=== PATIENT | male | born 1945 | race Caucasian/White ===

== ENCOUNTER 2018-02-11 15:01 | Inpatient (IN) ==
[2018-02-11] MEDS ORDERED: 0.9 % Sodium Chloride 500 ML IVC ONE (15:24)
--- NOTE | 2018-02-11 15:42 | Emergency Department Note ---
Disposition Clinical Impression: Acute kidney injury UTI (urinary tract infection) Qualifiers: Urinary tract infection type: site unspecified Hematuria presence: without hematuria Qualified Code(s): N39.0 - Urinary tract infection, site not specified Disposition: Admitted As Inpatient Condition: Fair Time of Disposition: 17:00 General Adult HPI - General Chief complaint: ED General Medical Stated complaint: DECREASED RENAL FUNCTION Time Seen by Provider: 02/11/18 15:10 Source: patient, other (ECF report) Mode of arrival: EMS Limitations: physical limitation Nursing Notes Reviewed: Yes Vital Signs Reviewed: Yes - History of Present Illness HPI Narrative: Patient presents to the ED via EMS for local ECF with report of decreased renal function based on outpatient lab work. Patient is a resident at [facility] and per nursing staff call ahead of time he was being sent in by Dr. Jimenez due to a sudden increase in his BUN and creatinine as well as some increased confusion. Patient has a history of CHF and is on diuretics as well as a recent fluid restriction per report. Patient's history is also notable for recent admission at [facility] for a spontaneous pneumothorax approximately 2 weeks ago. He also has cirrhosis, hypertension, diabetes, COPD, ME and is currently being treated for a UTI. skilled nursing report shows that he is on Bactrim. The patient himself denies any complaints when asked but on specific review of systems he does admit to some chronic mild shortness of breath and leg swelling that is no change. He does report a single episode of diarrhea today. He denies any chest pain, lightheadedness or dizziness. No abdominal pain, nausea or vomiting. No cough or congestion. Pain Scale: 0 - Related Data Home Medications Medication Instructions Recorded Confirmed Atorvastatin [Lipitor] 40 mg PO HS 07/05/15 02/11/18 Clopidogrel [Plavix] 75 mg PO DAILY 07/05/15 02/11/18 Tamsulosin [Flomax] 0.4 mg PO DAILY 07/05/15 02/11/18 Apixaban [Eliquis] 5 mg PO BID 01/07/18 02/11/18 Famotidine [Heartburn Prevention] 20 mg PO BID 01/07/18 02/11/18 Furosemide [Lasix] 80 mg PO DAILY 01/07/18 02/11/18 Cholecalciferol (Vitamin D3) 2,000 unit PO 02/11/18 [Vitamin D] Docusate [Colace] 100 mg PO BID 02/11/18 02/11/18 Insulin Glargine,Hum.rec.anlog 40 unit SQ HS 02/11/18 02/11/18 [Lantus Solostar] Ipratropium/Albuterol Neb [Duoneb] 3 ml IH Q4HR 02/11/18 02/11/18 Lactobacillus Acidophilus 1 each PO BID 02/11/18 02/11/18 [Acidophilus Lactobacillus] Metoprolol XL (24 HR) Succ [Toprol 50 mg PO DAILY 02/11/18 02/11/18 XL] Polyethylene Glycol 3350 [MiraLAX 1 scoop PO DAILY 02/11/18 02/11/18 Powder Bulk 17.9 Oz] Sulfamethoxazole/Trimeth DS 1 each PO BID 02/11/18 02/11/18 [Bactrim DS] Tramadol HCl [Ultram] 50 mg PO QID PRN 02/11/18 02/11/18 Allergies Allergy/AdvReac Type Severity Reaction Status Date / Time No Known Allergies Allergy Verified 01/29/18 04:33 Constitutional: Denies: fever, chills, weakness, weight change Eyes: Denies: eye pain, eye discharge, vision change ENT ED: Denies: ear pain, throat pain, dental pain, hearing loss, epistaxis, congestion, dysphagia Cardiovascular: Reports: as per HPI, edema. Denies: chest pain, palpitations, dyspnea on exertion, syncope Respiratory: Reports: as per HPI, cough, dyspnea. Denies: wheezes, hemoptysis, stridor Gastrointestinal: Denies: abdominal pain, nausea, vomiting, diarrhea, constipation, hematemesis, melena, hematochezia Genitourinary: Denies: urgency, dysuria, frequency, hematuria Musculoskeletal: Denies: back pain, neck pain, arthralgia, myalgia Integumentary: Denies: rash, abrasion, lesions Neurological: Denies: headache, weakness, numbness, paresthesias, confusion, abnormal gait, vertigo Psychiatric: Denies: anxiety, depression, suicidal thoughts, homicidal thoughts , auditory hallucinations, visual hallucinations Endocrine: Denies: fatigue Hematological/Lymphatic: Denies: easy bleeding, easy bruising Allergic/Immunologic: Denies: facial swelling, urticaria Past Medical History - Past Medical History Medical history: Reports: cirrhosis, CHF, COPD, coronary artery disease, CVA, diabetes, GERD, hyperlipidemia, hypertension, liver disease, myocardial infarction, other Psychiatric history: Reports: no psych history - Social History Smoking Status: Former smoker Smokeless Tobacco Status: No Alcohol use: Reports: none Drug use: Reports: none Physical Exam - General Limitations: physical limitation General appearance: alert, in no apparent distress - Head Head exam: atraumatic, normocephalic, normal inspection - Eye Eye exam: Present: normal appearance, PERRL, EOMI - ENT ENT exam: normal exam, normal oropharynx, mucous membranes dry - Neck Neck exam: Present: normal inspection, full ROM, trachea midline - Chest Chest inspection: Present: normal inspection, symmetric chest wall rise. Absent : tenderness - Respiratory Respiratory exam: Present: normal lung sounds bilaterally. Absent: respiratory distress - Cardiovascular Cardiovascular exam: Present: regular rate, normal rhythm, normal heart sounds - Abdominal Exam Abdominal exam: Present: soft, Non-Tender. Absent: tenderness, distention, guarding, rebound, rigidity - Extremities Exam Extremities exam: Present: normal inspection, full ROM, pedal edema (2+ lower calf/ankles). Absent: tenderness - Neurological Exam Neurological exam: Present: alert, oriented X3 - Psychiatric Psychiatric exam: Present: normal affect, normal mood - Skin Skin exam: Present: warm, dry, intact, normal color Course Course Narrative: Patient presents to the ED from a local [facility] for further evaluation of a sudden decline in renal function on outpatient lab work per report. Review of records shows that his BUN and creatinine went from 29 and 1.8 on 02/09 to 43 and 2.8 to today as well as a slight increase in a chronically elevated white blood cell count. skilled nursing records shows that patient is on Lasix 60 mg daily as well as a recent fluid restriction of 2000 mL per day that was started on the . Records show he had previously been on Aldactone as well. On arrival patient is afebrile, nontoxic in appearance and hemodynamically stable other than he does have a mildly low blood pressure which appears to be chronic for him. Oxygen saturations are in the low 90s on 4 L which is his usual oxygen requirement per EMS. Physical exam is notable only for lower extremity edema with clear lung sounds and no respiratory distress. Will give gentle IV fluids while laboratory studies and chest x-ray are obtained for further evaluation. - Reevaluation(s) Reevaluation #1: Chest x-ray shows mild cardiomegaly without overt failure. Laboratory studies show increasing leukocytosis as well as increasing BUN/creatinine and persistent signs of UTI. BNP is only minimally elevated. Given these worsening results patient will require admission for continued judicious hydration for what appears to be over diuresis. I called and spoke to Dr. Jimenez who has agreed to admit the patient. Patient and family updated on plan. Vital Signs Temperature 97.7 F 02/11/18 15:04 Pulse Rate 94 02/11/18 15:04 Respiratory Rate 18 02/11/18 15:04 Blood Pressure 94/47 02/11/18 15:04 O2 Sat by Pulse Oximetry 94 02/11/18 15:04 Temperature 98.3 F 02/12/18 04:10 Pulse Rate 90 02/12/18 04:10 Respiratory Rate 20 02/12/18 04:10 Blood Pressure 80/52 02/12/18 04:10 O2 Sat by Pulse Oximetry 93 02/12/18 04:10 Oxygen Delivery Oxygen Delivery Nasal Cannula Medical Decision Making - Medical Records Medical records reviewed: Yes I reviewed the patient's medical records. - Lab Data Lab results reviewed: Yes I reviewed the patient's lab results. Result diagrams: 02/11/18 15:57 02/11/18 15:57 Lab Results 02/11/18 02/11/18 02/11/18 Range/Units 15:57 15:57 15:57 WBC 18.5 H (4.3-11.1) K/mcL RBC 3.13 L (4.19-5.50) M/mcL Hgb 9.3 L (12.9-16.9) g/dL Hct 29.3 L (37.5-50.1) % MCV 93.6 (83.0-100.0) fL MCH 29.7 (28.0-33.3) pg MCHC 31.7 (31.6-35.5) g/dL RDW 15.9 H (11.5-14.5) % Plt Count 247 (140-400) K/mcL MPV 9.4 (9.4-12.4) fL Immature Gran % 0.8 (0-4) % Seg Neutrophils % 88.8 % Lymphocytes % 5.6 % Monocytes % 4.1 % Eosinophils % 0.5 % Basophils % 0.2 % Neutrophils # 16.4 H (1.6-8.9) K/mcL Lymphocytes # 1.0 (0.6-4.6) K/mcL Monocytes # 0.8 (0.0-1.3) K/mcL Eosinophils # 0.1 (0.0-0.6) K/mcL Basophils # 0.0 (0.0-0.2) K/mcL Sodium 132 L (136-145) mEq/L Potassium 5.2 H (3.5-5.1) mEq/L Chloride 100 (98-107) mEq/L Carbon Dioxide 24 (23-29) mEq/L BUN 47 H (8-23) mg/dL Creatinine 3.01 H (0.70-1.30) mg/dL Est GFR ( Amer) 25 L (> 60) Est GFR (Non-Af Amer) 20 L (> 60) BUN/Creatinine Ratio 16 (6-26) Glucose 127 H (70-105) mg/dL Calculated Osmolality 288 (280-300) Calcium 8.7 (8.6-10.3) mg/dL Total Bilirubin 0.5 (0.3-1.0) mg/dL AST 28 (13-39) Units/L ALT 20 (7-52) Units/L Alkaline Phosphatase 80 (34-104) Units/L B-Natriuretic Peptide 168 H (Less than 100) pg/mL Serum Total Protein 5.4 L (6.4-8.9) g/dL Albumin 2.2 L (3.5-5.7) g/dL Globulin 3.2 (2.4-3.5) g/dL Albumin/Globulin Ratio 0.7 L (1.1-2.2) - Radiology Data Radiology results reviewed: Yes I reviewed the patient's radiology results. ITS Impressions Chest X-Ray 02/11/18 15:24 IMPRESSION: Right basilar atelectasis. Mild cardiomegaly without overt failure. D/ / Keyur Lezama MD / Keyur Lezama MD Interpreting Provider: Keyur Lezama MD
[2018-02-11 16:07] LABS: Basophils % 0.2 %; Eosinophils # 0.1 K/mcL (0.0-0.6); Eosinophils % 0.5 %; Hematocrit 29.3 % (37.5-50.1); Hemoglobin 9.3 g/dL (12.9-16.9); Immature Granulocytes % 0.8 % (0-4); Lymphocytes % 5.6 %; Mean Corpuscular HGB Conc 31.7 g/dL (31.6-35.5); Mean Corpuscular Hemoglobin 29.7 pg (28.0-33.3); Mean Corpuscular Volume 93.6 fL (83.0-100.0); Mean Platelet Volume 9.4 fL (9.4-12.4); Monocytes # 0.8 K/mcL (0.0-1.3); Monocytes % 4.1 %; Neutrophils # 16.4 K/mcL (1.6-8.9); Platelet Count 247 K/mcL (140-400); Red Blood Count 3.13 M/mcL (4.19-5.50); Red Cell Distribution Width 15.9 % (11.5-14.5); Segmented Neutrophils % 88.8 %
[2018-02-11 16:25] LABS: Albumin 2.2 g/dL (3.5-5.7); Albumin/Globulin Ratio 0.7 (1.1-2.2); Bilirubin,Total 0.5 mg/dL (0.3-1.0); Calcium 8.7 mg/dL (8.6-10.3); Globulin 3.2 g/dL (2.4-3.5); Potassium 5.2 mEq/L (3.5-5.1); Total Protein 5.4 g/dL (6.4-8.9)
[2018-02-11] MEDS ORDERED: Naloxone 0.4 MG/ML INJ IVP PRN ×2 (17:35→18:32)
[2018-02-11] MEDS ORDERED: 0.9 % Sodium Chloride 1,000 ML IVC SCH ×2 (17:45→18:32)
[2018-02-11] MEDS ORDERED: *HR* Dextrose 50 % in Water (Syg) 50 ML SYRINGE IVP PRN ×2 (17:48→18:32)
[2018-02-11] MEDS ORDERED: D5% in Water 1,000 ML IVC PRN ×2 (17:48→18:32)
[2018-02-11] MEDS ORDERED: Dextrose Gel 15 GM/37.5 ML TUBE PO PRN ×4 (17:48→18:32)
[2018-02-11] MEDS ORDERED: traMADol 50 MG TABLET PO PRN (18:32)
[2018-02-11 19:42] LABS: Bilirubin,Urine Negative (Negative); Blood,Urine Small (Negative); Clarity,Urine Slightly Cloudy (Clear); Color,Urine Dark Yellow (Yellow); Glucose,Urine (UA) Normal (Normal); Ketones,Urine Negative (Negative); Leukocyte Esterase,Urine Moderate (Negative); Nitrite,Urine Negative (Negative); Protein,Urine Trace mg/dL (Neg-Trace); Specific Gravity,Urine 1.025 (1.010-1.025); Urobilinogen,Urine Normal (Normal)
[2018-02-11 19:47] LABS: WBC,Urine 30-50 per hpf (0-3)
[2018-02-11 19:48] LABS: Yeast,Urine Moderate per hpf (None Seen)
[2018-02-11] MEDS: Ipratropium/Albuterol Neb 3 ML IH SCH (20:10)
[2018-02-11] MEDS ORDERED: Insulin DETEMIR 100 UNIT/ML per UNIT SQ ONE ×2 (21:00→22:09)
[2018-02-11] MEDS ORDERED: Insulin LISPRO 300 UNITS/3 ML VIAL SQ SCH (21:00)
[2018-02-11] MEDS: Insulin LISPRO 300 UNITS/3 ML VIAL SQ SCH (21:51)
[2018-02-11] MEDS: Lactobacillus 1 EACH CAP.SPRINK PO SCH (22:20)
[2018-02-11] MEDS: Famotidine 20 MG TABLET PO SCH (22:20)
[2018-02-11] MEDS: Sulfamethoxazole/Trimeth DS 1 EACH TABLET PO SCH (22:20)
[2018-02-11] MEDS: Apixaban 5 MG TABLET PO SCH (22:21)
[2018-02-12] MEDS: Ipratropium/Albuterol Neb 3 ML IH SCH ×6 (04:50→20:46)
[2018-02-12] MEDS ORDERED: Insulin LISPRO 300 UNITS/3 ML VIAL SQ SCH (07:30)
[2018-02-12 08:14] LABS: Basophils % 0.3 %; Eosinophils # 0.2 K/mcL (0.0-0.6); Eosinophils % 1.8 %; Hematocrit 28.4 % (37.5-50.1); Immature Granulocytes % 0.9 % (0-4); Lymphocytes # 1.2 K/mcL (0.6-4.6); Lymphocytes % 10.2 %; Mean Corpuscular HGB Conc 31.7 g/dL (31.6-35.5); Mean Corpuscular Hemoglobin 29.9 pg (28.0-33.3); Mean Corpuscular Volume 94.4 fL (83.0-100.0); Mean Platelet Volume 9.1 fL (9.4-12.4); Monocytes # 0.7 K/mcL (0.0-1.3); Monocytes % 5.5 %; Platelet Count 247 K/mcL (140-400); Red Blood Count 3.01 M/mcL (4.19-5.50); Red Cell Distribution Width 15.9 % (11.5-14.5); Segmented Neutrophils % 81.3 %
[2018-02-12 08:25] LABS: Neutrophils # 9.8 K/mcL (1.6-8.9)
[2018-02-12 08:33] LABS: Calcium 8.8 mg/dL (8.6-10.3); Potassium 5.3 mEq/L (3.5-5.1)
[2018-02-12] MEDS: Insulin LISPRO 300 UNITS/3 ML VIAL SQ SCH ×4 (09:28→22:21)
[2018-02-12] MEDS: Sulfamethoxazole/Trimeth DS 1 EACH TABLET PO SCH (10:23)
[2018-02-12] MEDS: Lactobacillus 1 EACH CAP.SPRINK PO SCH ×2 (10:23→22:19)
[2018-02-12] MEDS: Famotidine 20 MG TABLET PO SCH (10:23)
[2018-02-12] MEDS: Apixaban 5 MG TABLET PO SCH ×2 (10:23→22:20)
--- NOTE | 2018-02-12 10:27 | Internal Med History&Physical ---
Date of Encounter: 02/12/18 Time of Encounter: 09:50 Assessment and Plan (1) Acute kidney injury Current visit: Yes Status: Acute He will be given gentle IV hydration. Lasix will be held and renal indices will be monitored. (2) UTI (urinary tract infection) Current visit: Yes Status: Acute He will be given Rocephin with lactobacillus empirically. Qualifiers: Urinary tract infection type: site unspecified Hematuria presence: without hematuria Qualified Code(s): N39.0 - Urinary tract infection, site not specified (3) COPD (chronic obstructive pulmonary disease) Current visit: Yes Status: Chronic Continue oxygen and nebulizer treatments. Qualifiers: COPD type: unspecified COPD Qualified Code(s): J44.9 - Chronic obstructive pulmonary disease, unspecified (4) Anemia Current visit: Yes Status: Chronic Present on most labs since June 2015. Anemia testing 02/09/2018 showed iron 26, transferrin saturation 13%, transferrin 144, ferritin 397, B12 791, and folate 4.3. Will order ferrous sulfate with vitamin C trial. Qualifiers: Anemia type: unspecified type Qualified Code(s): D64.9 - Anemia, unspecified (5) Pancreatic cyst Current visit: Yes Status: Acute Uncertain diagnosis. CT of abdomen/pelvis will be ordered. (6) Cirrhosis of liver Current visit: Yes Status: Chronic He is unaware of any workup done for etiology. Will order hepatitis B and C panel, SAHRA, and alpha-1 antitrypsin. Qualifiers: Ascites presence: with ascites Qualified Code(s): K74.60 - Unspecified cirrhosis of liver; R18.8 - Other ascites (7) Atrial fibrillation Current visit: No Status: Chronic Continue Eliquis Qualifiers: Atrial fibrillation type: paroxysmal Qualified Code(s): I48.0 - Paroxysmal atrial fibrillation (8) CHF (congestive heart failure) Current visit: No Status: Chronic Order echocardiogram. Qualifiers: Heart failure type: unspecified Heart failure chronicity: chronic Qualified Code(s): I50.9 - Heart failure, unspecified (9) Diabetes mellitus Current visit: No Status: Chronic Hemoglobin A1c was 5.8% on 01/23/2018. He has had borderline hypoglycemia. Lantus/Levemir dose will be reduced. Accu-Cheks with SSI continued. Qualifiers: Diabetes mellitus type: type 2 Diabetes mellitus care home insulin use: with care home use Diabetes mellitus complication status: with unspecified complications Qualified Code(s): E11.8 - Type 2 diabetes mellitus with unspecified complications; Z79.4 - intermediate frame tender (current) use of insulin Internal Medicine - H&P: HPI Chief complaint: Acute renal failure, leukocytosis Admitted From: Emergency Dept Plans for Post Hospital Care: Transfer Custodial Facility History of present illness: Mr. Limon is a 72 year old male who was sent to emergency room from [facility] after acute renal failure was documented. He was evaluated in emergency room and found to have leukocytosis with left shift in addition to acute renal failure. He was admitted to [facility] floor for ongoing care needs. Past Med Surg Social Fam HX - Past Medical History Medical history: cirrhosis, CHF, COPD, coronary artery disease, CVA, diabetes, GERD, hyperlipidemia, hypertension, liver disease, myocardial infarction, other Additional medical history: ANEMIA. Psychiatric history: no psych history - Past Surgical History Additional surgical history: CARDIAC STENTS X4 - Social History Smoking Status: Former smoker Smokeless Tobacco Status: No Alcohol use: none Drug use: none - Family History Mother Living Status: Unknown Internal Medicine - H&P: Meds Atorvastatin [Lipitor] 40 mg PO HS 07/05/15 [History] Clopidogrel [Plavix] 75 mg PO DAILY 07/05/15 [History] Tamsulosin [Flomax] 0.4 mg PO DAILY 07/05/15 [History] Apixaban [Eliquis] 5 mg PO BID 01/07/18 [History] Famotidine [Heartburn Prevention] 20 mg PO BID 01/07/18 [History] Furosemide [Lasix] 80 mg PO DAILY 01/07/18 [History] Cholecalciferol (Vitamin D3) [Vitamin D] 2,000 unit PO 02/11/18 [History] Docusate [Colace] 100 mg PO BID 02/11/18 [History] Insulin Glargine,Hum.rec.anlog [Lantus Solostar] 40 unit SQ HS 02/11/18 [History ] Ipratropium/Albuterol Neb [Duoneb] 3 ml IH Q4HR 02/11/18 [History] Lactobacillus Acidophilus [Acidophilus Lactobacillus] 1 each PO BID 02/11/18 [ History] Metoprolol XL (24 HR) Succ [Toprol XL] 50 mg PO DAILY 02/11/18 [History] Polyethylene Glycol 3350 [MiraLAX Powder Bulk 17.9 Oz] 1 scoop PO DAILY [History] Sulfamethoxazole/Trimeth DS [Bactrim DS] 1 each PO BID 02/11/18 [History] Tramadol HCl [Ultram] 50 mg PO QID PRN 02/11/18 [History] 3 Allergy/AdvReac Type Severity Reaction Status Date / Time No Known Allergies Allergy Verified 01/29/18 04:33 All Systems PM: A 10-system review of systems was performed and is negative for pertinent findings except as documented above in the HPI. Review of systems: Gen.: His weight has fluctuated recently based on fluid retention Cardiovascular: He has a history of hypertension, CHF (type unknown), and ASHD status post 4 stents placed. He does not recall when his last heart catheter occurred. He denies DVT but reports pulmonary embolus September 2017 and is now on Eliquis. He has history of atrial fibrillation. Respiratory: He smoked from age 16 until a few months ago. He has COPD and wears oxygen 06/01. He had a spontaneous left pneumothorax approximately 2 weeks ago and was hospitalized at [facility] briefly following transport to [facility] where chest tube was placed prior to transfer to [facility]. He denies being tested for sleep apnea. GI: He has history of cirrhosis of uncertain etiology. He denies hepatitis or significant alcohol use. He denies disorders of his gallbladder. He states he was diagnosed with a pancreatic cyst (?) at [facility] hospitalization January 2018. This was not confirmed upon reviewing the discharge summary from [facility]. : He denies hematuria dysuria or kidney stones. 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 He underwent rehabilitation but has residual deficit of his left arm, overall weakness, and memory loss. Endocrine: He was diagnosed with DM 2 approximately 2012. He denies thyroid disease or hyperlipidemia Hematology/oncology: He denies blood disorders or internal malignancies. He has anemia. Psychiatric: He denies anxiety depression or other mental health issues. Mus[place] skeletal: He denies arthritis gout or other bone joint or muscle disorders. - Constitutional Vitals: Temp Pulse Resp BP Pulse Ox 97.7 F 86 18 84/52 89 02/12/18 06:50 02/12/18 06:50 02/12/18 07:45 08/30/18 06:50 02/12/18 07:45 Exam: Gen.: He is a well-developed well-nourished male who appears in no severe distress at present time. HEENT: Head is atraumatic and normocephalic. Eyes: EOMI. There is no scleral icterus. Mouth: Mucosa is moist. Neck: Supple and nontender. There is no thyromegaly or adenopathy noted. Heart: Regular without murmurs gallops or ectopics Lungs: No wheezes or crackles are heard. Abdomen: Soft and nontender. No masses or guarding are noted. Extremities: He has 2-3+ edema of the dorsum of feet and lower legs bilaterally. He has chronic venous stasis pigmentation changes of his lower legs and feet. Dorsalis pedis and posterior tibial pulses are not palpable. He has wasting of the interosseous muscles of his hand. He has spastic tone in his left arm from previous CVA. Neurologic: Mental status: He is talkative and able to answer most questions appropriately. Cranial nerves: Smile is symmetric. Forehead wrinkles bilaterally. Tongue protrudes midline. EOMI. Motor: He has difficulty raising his left arm off the bed spontaneously. The right arm can pronate normally without drift. Cerebellar: Finger to nose is intact bilaterally. Skin: Warm and dry Internal Med - H&P Results - Labs CBC & Chem 7: 02/12/18 07:56 02/12/18 07:56 Labs: Short CBC 02/12/18 Range/Units 07:56 WBC 12.0 H (4.3-11.1) K/mcL Hgb 9.0 L (12.9-16.9) g/dL Hct 28.4 L (37.5-50.1) % Plt Count 247 (140-400) K/mcL Neutrophils # 9.8 H (1.6-8.9) K/mcL BMP 02/12/18 07:56 Sodium 131 L Potassium 5.3 H Chloride 99 Carbon Dioxide 26 BUN 50 H Creatinine 3.16 H Glucose 73 Calcium 8.8 Urine 02/11/18 Range/Units 19:30 Urine Color Dark Yellow (Yellow) Urine Clarity Slightly Cloudy A (Clear) Urine pH 5.0 (5.0-8.0) pH Units Ur Specific [place] 1.025 (1.010-1.025) Urine Protein Trace (Neg-Trace) mg/dL Urine Glucose (UA) Normal (Normal) mg/dL - VTE Reasons for not Prescribing Prophylaxis: Treatment not Indicated - Low risk for VTE
[2018-02-12] MEDS: cefTRIAXone 1,000 MG in Water for inj. (sterile) 20 ML 10 ML IVP SCH (12:40)
[2018-02-12] MEDS: Mag Hydrox/Al Hydrox/Simeth 30 ML UDC PO PRN (17:53)
[2018-02-12] MEDS ORDERED: Insulin DETEMIR 100 UNIT/ML X5UNITS SQ SCH (21:00)
[2018-02-12] MEDS ORDERED: Lactobacillus 1 EACH CAP.SPRINK PO SCH (21:00)
[2018-02-12] MEDS: Insulin DETEMIR 100 UNIT/ML X5UNITS SQ SCH (22:20)
[2018-02-13] MEDS: Ipratropium/Albuterol Neb 3 ML IH SCH ×6 (00:43→20:39)
[2018-02-13] MEDS: ALPRAZolam 0.5 MG TABLET PO PRN (04:00)
[2018-02-13] MEDS: Mag Hydrox/Al Hydrox/Simeth 30 ML UDC PO PRN ×2 (04:27→21:57)
[2018-02-13] MEDS: Ascorbic Acid 500 MG TABLET PO SCH (06:17)
[2018-02-13 07:24] LABS: Basophils % 0.2 %; Eosinophils # 0.1 K/mcL (0.0-0.6); Eosinophils % 1.3 %; Hematocrit 30.2 % (37.5-50.1); Hemoglobin 9.5 g/dL (12.9-16.9); Immature Granulocytes % 0.8 % (0-4); Lymphocytes # 0.9 K/mcL (0.6-4.6); Lymphocytes % 9.3 %; Mean Corpuscular HGB Conc 31.5 g/dL (31.6-35.5); Mean Corpuscular Hemoglobin 29.8 pg (28.0-33.3); Mean Corpuscular Volume 94.7 fL (83.0-100.0); Mean Platelet Volume 9.3 fL (9.4-12.4); Monocytes # 0.6 K/mcL (0.0-1.3); Monocytes % 6.8 %; Neutrophils # 7.6 K/mcL (1.6-8.9); Platelet Count 229 K/mcL (140-400); Red Blood Count 3.19 M/mcL (4.19-5.50); Red Cell Distribution Width 15.8 % (11.5-14.5); Segmented Neutrophils % 81.6 %
[2018-02-13 07:51] LABS: Calcium 8.7 mg/dL (8.6-10.3); Magnesium 2.8 mg/dL (1.6-2.6); Potassium 5.7 mEq/L (3.5-5.1)
[2018-02-13] MEDS: Insulin LISPRO 300 UNITS/3 ML VIAL SQ SCH ×4 (08:06→21:49)
[2018-02-13] MEDS: Apixaban 5 MG TABLET PO SCH (10:18)
[2018-02-13] MEDS: Lactobacillus 1 EACH CAP.SPRINK PO SCH ×2 (10:18→21:48)
[2018-02-13] MEDS: cefTRIAXone 1,000 MG in Water for inj. (sterile) 20 ML 10 ML IVP SCH (10:19)
[2018-02-13 15:21] LABS: Hepatitis A Antibody IgM Nonreactive (Nonreactive); Hepatitis B Core IgM Nonreactive (Nonreactive); Hepatitis B Surface Antigen Nonreactive (Nonreactive); Hepatitis C Virus Antibody Nonreactive (Nonreactive)
--- NOTE | 2018-02-13 15:42 | Internal Med Progress Note ---
Date of Encounter: 02/13/18 Time of Encounter: 15:30 - Assessment and plan (1) Acute kidney injury Current Visit: Yes Status: Acute Assessment and plan: February 13. Continue gentle IV hydration and withholding diuretics. Recheck labs in a.m. (2) UTI (urinary tract infection) Current Visit: Yes Status: Acute Assessment and plan: February 13. Urine culture has grown yeast. Hematuria has lessened. Discontinue Eliquis. Continue Rocephin and lactobacillus (pneumonia). Qualifiers: Urinary tract infection type: site unspecified Hematuria presence: without hematuria Qualified Code(s): N39.0 - Urinary tract infection, site not specified (3) COPD (chronic obstructive pulmonary disease) Current Visit: Yes Status: Chronic Assessment and plan: February 13. Continue oxygen and nebulizer treatments. Qualifiers: COPD type: unspecified COPD Qualified Code(s): J44.9 - Chronic obstructive pulmonary disease, unspecified (4) Anemia Current Visit: Yes Status: Chronic Assessment and plan: February 13. Continue ferrous sulfate with vitamin C. Discontinue Eliquis. Qualifiers: Anemia type: unspecified type Qualified Code(s): D64.9 - Anemia, unspecified (5) Pancreatic cyst Current Visit: Yes Status: Acute Assessment and plan: February 13. Abdominal CT showed benign 3.6 cm mid pancreatic cyst. Will not workup further. (6) Cirrhosis of liver Current Visit: Yes Status: Chronic Assessment and plan: February 13. Etiology uncertain. Hepatitis profile returned negative. Other studies pending. Cannot give diuretics at this time for ascites because of worsening renal failure and borderline hypotension. Qualifiers: Ascites presence: with ascites Qualified Code(s): K74.60 - Unspecified cirrhosis of liver; R18.8 - Other ascites (7) Atrial fibrillation Current Visit: No Status: Chronic Assessment and plan: February 13. Stop Eliquis because of hematuria and hypotension. Qualifiers: Atrial fibrillation type: paroxysmal Qualified Code(s): I48.0 - Paroxysmal atrial fibrillation (8) CHF (congestive heart failure) Current Visit: No Status: Chronic Assessment and plan: February 13. Echocardiogram could not be completed because of extremely poor windows. Continue present management. Qualifiers: Heart failure type: unspecified Heart failure chronicity: chronic Qualified Code(s): I50.9 - Heart failure, unspecified (9) Diabetes mellitus Current Visit: No Status: Chronic Assessment and plan: February 13. Lantus/Levemir reduced from 40 units to 15 units. Continue Accu- Cheks with SSI. Qualifiers: Diabetes mellitus type: type 2 Diabetes mellitus termite exterminator insulin use: with termite exterminator use Diabetes mellitus complication status: with unspecified complications Qualified Code(s): E11.8 - Type 2 diabetes mellitus with unspecified complications; Z79.4 - halfway (current) use of insulin (10) Hematoma of muscle Current Visit: Yes Status: Acute Assessment and plan: February 13. Abdominal CT showed 5.8 cm right rectus muscle abdominal wall hematoma. Stop Eliquis. (11) Pneumonia Current Visit: No Status: Acute Assessment and plan: February 13. Abdominal CT showed opacity in right lower lobe. Continue Rocephin and lactobacillus. Qualifiers: Pneumonia type: due to unspecified organism Laterality: right Lung location: lower lobe of lung Qualified Code(s): J18.1 - Lobar pneumonia, unspecified organism - Subjective Interval history: February 13. He has no new complaints - Constitutional Vitals: Temp Pulse Resp BP Pulse Ox 98.6 F 116 16 79/52 90 02/13/18 15:16 02/13/18 15:16 02/13/18 15:16 02/13/18 15:16 02/13/18 15:16 Exam: He is resting comfortably in bed and appears in no acute distress. Edema of lower legs is unchanged. His affect is bright and cheerful. I reviewed his medications and lab results. Internal Medicine: Result - Labs CBC & Chem 7: 02/13/18 07:10 02/13/18 07:10 Labs: Short CBC 02/13/18 Range/Units 07:10 WBC 9.3 (4.3-11.1) K/mcL Hgb 9.5 L (12.9-16.9) g/dL Hct 30.2 L (37.5-50.1) % Plt Count 229 (140-400) K/mcL Neutrophils # 7.6 (1.6-8.9) K/mcL BMP 02/13/18 07:10 Sodium 132 L Potassium 5.7 H Chloride 99 Carbon Dioxide 27 BUN 51 H Creatinine 3.31 H Glucose 88 Calcium 8.7 - VTE Reasons for not Prescribing Prophylaxis: Treatment not Indicated - Low risk for VTE Consult Discharge Plan - Plan Referrals: Sky Alcantar [Primary Care Provider] - 1 week
[2018-02-13] MEDS: Insulin DETEMIR 100 UNIT/ML X5UNITS SQ SCH (21:48)
[2018-02-14] MEDS: Ipratropium/Albuterol Neb 3 ML IH SCH ×6 (00:41→20:13)
[2018-02-14] MEDS: ALPRAZolam 0.5 MG TABLET PO PRN (01:37)
[2018-02-14] MEDS: Mag Hydrox/Al Hydrox/Simeth 30 ML UDC PO PRN ×2 (03:46→07:54)
[2018-02-14 06:28] LABS: Basophils % 0.2 %; Eosinophils % 0.2 %; Hematocrit 30.7 % (37.5-50.1); Immature Granulocytes % 0.7 % (0-4); Lymphocytes # 0.8 K/mcL (0.6-4.6); Lymphocytes % 5.8 %; Mean Corpuscular HGB Conc 32.6 g/dL (31.6-35.5); Mean Corpuscular Hemoglobin 30.1 pg (28.0-33.3); Mean Corpuscular Volume 92.5 fL (83.0-100.0); Mean Platelet Volume 9.1 fL (9.4-12.4); Monocytes # 0.9 K/mcL (0.0-1.3); Monocytes % 6.7 %; Neutrophils # 11.2 K/mcL (1.6-8.9); Platelet Count 308 K/mcL (140-400); Red Blood Count 3.32 M/mcL (4.19-5.50); Red Cell Distribution Width 15.8 % (11.5-14.5); Segmented Neutrophils % 86.4 %
[2018-02-14] MEDS: Ascorbic Acid 500 MG TABLET PO SCH (06:39)
[2018-02-14 06:41] LABS: INR 1.6
[2018-02-14 06:56] LABS: Albumin 2.3 g/dL (3.5-5.7); Albumin/Globulin Ratio 0.6 (1.1-2.2); Bilirubin,Total 0.4 mg/dL (0.3-1.0); Calcium 8.6 mg/dL (8.6-10.3); Globulin 3.6 g/dL (2.4-3.5); Total Protein 5.9 g/dL (6.4-8.9)
[2018-02-14] MEDS: Lactobacillus 1 EACH CAP.SPRINK PO SCH ×2 (07:55→21:32)
[2018-02-14] MEDS: cefTRIAXone 1,000 MG in Water for inj. (sterile) 20 ML 10 ML IVP SCH (07:58)
[2018-02-14] MEDS: Insulin LISPRO 300 UNITS/3 ML VIAL SQ SCH ×4 (08:15→21:35)
--- NOTE | 2018-02-14 09:57 | Internal Med Progress Note ---
Date of Encounter: 02/14/18 Time of Encounter: 09:45 - Assessment and plan (1) Acute kidney injury Current Visit: Yes Status: Acute Assessment and plan: February 13. Continue gentle IV hydration and withholding diuretics. Recheck labs in a.m. February 14. Renal function continues to gradually decline. Continue to monitor renal indices. (2) COPD (chronic obstructive pulmonary disease) Current Visit: Yes Status: Chronic Assessment and plan: February 13. Continue oxygen and nebulizer treatments. Qualifiers: COPD type: unspecified COPD Qualified Code(s): J44.9 - Chronic obstructive pulmonary disease, unspecified (3) Anemia Current Visit: Yes Status: Chronic Assessment and plan: February 13. Continue ferrous sulfate with vitamin C. Discontinue Eliquis. February 14. Hemoglobin improved to 10.0. Qualifiers: Anemia type: unspecified type Qualified Code(s): D64.9 - Anemia, unspecified (4) Pancreatic cyst Current Visit: Yes Status: Acute Assessment and plan: February 13. Abdominal CT showed benign 3.6 cm mid pancreatic cyst. Will not workup further. (5) Cirrhosis of liver Current Visit: Yes Status: Chronic Assessment and plan: February 13. Etiology uncertain. Hepatitis profile returned negative. Other studies pending. Cannot give diuretics at this time for ascites because of worsening renal failure and borderline hypotension. Qualifiers: Ascites presence: with ascites Qualified Code(s): K70.31 - Alcoholic cirrhosis of liver with ascites (6) Atrial fibrillation Current Visit: No Status: Chronic Assessment and plan: February 13. Stop Eliquis because of hematuria and hypotension. Qualifiers: Atrial fibrillation type: paroxysmal Qualified Code(s): I48.0 - Paroxysmal atrial fibrillation (7) CHF (congestive heart failure) Current Visit: No Status: Chronic Assessment and plan: February 13. Echocardiogram could not be completed because of extremely poor windows. Continue present management. Qualifiers: Heart failure type: unspecified Heart failure chronicity: chronic Qualified Code(s): I50.9 - Heart failure, unspecified (8) Diabetes mellitus Current Visit: No Status: Chronic Assessment and plan: February 13. Lantus/Levemir reduced from 40 units to 15 units. Continue Accu- Cheks with SSI. Qualifiers: Diabetes mellitus type: type 2 Diabetes mellitus fpc insulin use: with fpc use Diabetes mellitus complication status: with unspecified complications Qualified Code(s): E11.8 - Type 2 diabetes mellitus with unspecified complications; Z79.4 - shelter (current) use of insulin (9) Hematoma of muscle Current Visit: Yes Status: Acute Assessment and plan: February 13. Abdominal CT showed 5.8 cm right rectus muscle abdominal wall hematoma. Stop Eliquis. (10) Pneumonia Current Visit: No Status: Acute Assessment and plan: February 13. Abdominal CT showed opacity in right lower lobe. Continue Rocephin and lactobacillus. February 14. WBC slightly higher today at 13.0 with increased left shift. Will give Levaquin. Qualifiers: Pneumonia type: due to unspecified organism Laterality: right Lung location: lower lobe of lung Qualified Code(s): J18.1 - Lobar pneumonia, unspecified organism (11) UTI (urinary tract infection) Current Visit: Yes Status: Chronic Assessment and plan: February 13. Urine culture has grown yeast. Hematuria has lessened. Discontinue Eliquis. Continue Rocephin and lactobacillus (pneumonia). Qualifiers: Urinary tract infection type: site unspecified Hematuria presence: without hematuria Qualified Code(s): N39.0 - Urinary tract infection, site not specified - Subjective Interval history: February 13. He has no new complaints February 14. He has no new complaints. - Constitutional Vitals: Temp Pulse Resp BP Pulse Ox 98.3 F 137 16 80/53 90 02/14/18 07:00 02/14/18 07:00 02/14/18 08:34 02/14/18 07:00 02/14/18 08:34 Exam: He is lying in bed and appears in no significant discomfort. He is alert and talking and appropriate in conversation. He expresses he wants to be a full code. He does not wish to be transferred to [facility] as his ex- initially requested yesterday. I returned to the hospital last evening and had a discussion with them and at that time he initially deferred to his ex-'s decision regarding transfer. After a brief private conversation between the 2 of them they decided for him to remain at [facility] overnight without transfer. She was not in the room this morning and he stated that he wishes to remain here. Internal Medicine: Result - Labs CBC & Chem 7: 02/14/18 04:45 02/14/18 04:45 Labs: Short CBC 02/14/18 Range/Units 04:45 WBC 13.0 H (4.3-11.1) K/mcL Hgb 10.0 L (12.9-16.9) g/dL Hct 30.7 L (37.5-50.1) % Plt Count 308 (140-400) K/mcL Neutrophils # 11.2 H (1.6-8.9) K/mcL BMP 02/14/18 04:45 Sodium 128 L Potassium 5.0 Chloride 94 L Carbon Dioxide 25 BUN 53 H Creatinine 3.44 H Glucose 110 H Calcium 8.6 Liver Function 02/14/18 Range/Units 04:45 Total Bilirubin 0.4 (0.3-1.0) mg/dL AST 39 (13-39) Units/L ALT 36 (7-52) Units/L Alkaline Phosphatase 89 (34-104) Units/L Albumin 2.3 L (3.5-5.7) g/dL - ABG Interpretation ABG results: PT/INR, D-dimer PT 18.0 Seconds (9.4-12.1) H 02/14/18 04:45 - VTE Reasons for not Prescribing Prophylaxis: Treatment not Indicated - Low risk for VTE Consult Discharge Plan - Plan Referrals: Sky Alcantar [Primary Care Provider] - 1 week
[2018-02-14] MEDS: Levofloxacin 500 MG/100 ML 500 MG/100 ML BAG IVPB SCH (11:27)
[2018-02-14] MEDS: 0.9 % Sodium Chloride 1,000 ML IVC SCH (11:28)
[2018-02-14] MEDS: Insulin DETEMIR 100 UNIT/ML X5UNITS SQ SCH (21:33)
[2018-02-15] MEDS: ALPRAZolam 0.5 MG TABLET PO PRN ×3 (00:11→20:46)
[2018-02-15] MEDS: Mag Hydrox/Al Hydrox/Simeth 30 ML UDC PO PRN ×4 (00:11→20:46)
[2018-02-15] MEDS: Levalbuterol Neb 1.25 MG/3 ML IH PRN ×5 (00:25→20:13)
[2018-02-15] MEDS: Ascorbic Acid 500 MG TABLET PO SCH (06:41)
[2018-02-15 08:20] LABS: Calcium 8.5 mg/dL (8.6-10.3); Magnesium 3.2 mg/dL (1.6-2.6); Potassium 5.8 mEq/L (3.5-5.1)
[2018-02-15] MEDS: Lactobacillus 1 EACH CAP.SPRINK PO SCH ×2 (08:46→20:46)
[2018-02-15] MEDS: cefTRIAXone 1,000 MG in Water for inj. (sterile) 20 ML 10 ML IVP SCH (08:46)
[2018-02-15] MEDS: Insulin LISPRO 300 UNITS/3 ML VIAL SQ SCH ×4 (08:47→20:47)
[2018-02-15] MEDS ORDERED: *HR* Promethazine 25 MG/ML VIAL IVP PRN (09:03)
[2018-02-15] MEDS: 0.9 % Sodium Chloride 1,000 ML IVC SCH (09:45)
--- NOTE | 2018-02-15 12:07 | Internal Med Progress Note ---
Date of Encounter: 02/15/18 Time of Encounter: 11:55 - Assessment and plan (1) Acute kidney injury Current Visit: Yes Status: Acute Assessment and plan: February 13. Continue gentle IV hydration and withholding diuretics. Recheck labs in a.m. February 14. Renal function continues to gradually decline. Continue to monitor renal indices. February 15. Creatinine slightly improved to 3.31. BUN remains elevated. (2) COPD (chronic obstructive pulmonary disease) Current Visit: Yes Status: Chronic Assessment and plan: February 13. Continue oxygen and nebulizer treatments. Qualifiers: COPD type: unspecified COPD Qualified Code(s): J44.9 - Chronic obstructive pulmonary disease, unspecified (3) Anemia Current Visit: Yes Status: Chronic Assessment and plan: February 13. Continue ferrous sulfate with vitamin C. Discontinue Eliquis. February 14. Hemoglobin improved to 10.0. Qualifiers: Anemia type: unspecified type Qualified Code(s): D64.9 - Anemia, unspecified (4) Pancreatic cyst Current Visit: Yes Status: Acute Assessment and plan: February 13. Abdominal CT showed benign 3.6 cm mid pancreatic cyst. Will not workup further. (5) Cirrhosis of liver Current Visit: Yes Status: Chronic Assessment and plan: February 13. Etiology uncertain. Hepatitis profile returned negative. Other studies pending. Cannot give diuretics at this time for ascites because of worsening renal failure and borderline hypotension. Qualifiers: Ascites presence: with ascites Qualified Code(s): K70.31 - Alcoholic cirrhosis of liver with ascites (6) Atrial fibrillation Current Visit: No Status: Chronic Assessment and plan: February 13. Stop Eliquis because of hematuria and hypotension. Qualifiers: Atrial fibrillation type: paroxysmal Qualified Code(s): I48.0 - Paroxysmal atrial fibrillation (7) CHF (congestive heart failure) Current Visit: No Status: Chronic Assessment and plan: February 13. Echocardiogram could not be completed because of extremely poor windows. Continue present management. Qualifiers: Heart failure type: unspecified Heart failure chronicity: chronic Qualified Code(s): I50.9 - Heart failure, unspecified (8) Diabetes mellitus Current Visit: No Status: Chronic Assessment and plan: February 13. Lantus/Levemir reduced from 40 units to 15 units. Continue Accu- Cheks with SSI. 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 Abdominal CT showed 5.8 cm right rectus muscle abdominal wall hematoma. Stop Eliquis. (10) Pneumonia Current Visit: No Status: Acute Assessment and plan: February 13. Abdominal CT showed opacity in right lower lobe. Continue Rocephin and lactobacillus. February 14. WBC slightly higher today at 13.0 with increased left shift. Will give Levaquin. February 15. WBC not obtained today. Recheck in a.m. Continue Rocephin and Levaquin with lactobacillus. Qualifiers: Pneumonia type: due to unspecified organism Laterality: right Lung location: lower lobe of lung Qualified Code(s): J18.1 - Lobar pneumonia, unspecified organism (11) UTI (urinary tract infection) Current Visit: Yes Status: Chronic Assessment and plan: February 13. Urine culture has grown yeast. Hematuria has lessened. Discontinue Eliquis. Continue Rocephin and lactobacillus (pneumonia). Qualifiers: Urinary tract infection type: site unspecified Hematuria presence: without hematuria Qualified Code(s): N39.0 - Urinary tract infection, site not specified - Subjective Interval history: February 13. He has no new complaints February 14. He has no new complaints. February 15. He has no new complaints. He denies pain or dyspnea. - Constitutional Vitals: Temp Pulse Resp BP Pulse Ox 98.4 F 125 29 106/63 91 02/15/18 11:02/15/18 11:00 02/15/18 11:00 02/15/18 11:02/15/18 11:00 Exam: He is resting comfortably in bed. He is wearing oxygen by nasal cannula but it is blowing in his mouth. He answers questions appropriately. Peripheral edema is unchanged. Reviewed his chemistry profile. CBC could be obtained with initial lab draw and he declined repeated attempts. Internal Medicine: Result - Labs CBC & Chem 7: 02/14/18 04:45 02/15/18 07:48 Labs: [facility] 02/15/18 07:48 Sodium 130 L Potassium 5.8 H Chloride 98 Carbon Dioxide 22 L BUN 58 H Creatinine 3.31 H Glucose 104 Calcium 8.5 L - ABG Interpretation ABG results: PT/INR, D-dimer PT 18.0 Seconds (9.4-12.1) H 02/14/18 04:45 - Impressions Impressions Chest X-Ray 02/14/18 10:56 IMPRESSION: 1. Low lung volumes. 2. Trace bilateral pleural effusions with bibasilar opacification. D/ / Ken Jauregui MD / Ken Jauregui MD Interpreting Provider: Ken Jauregui MD - VTE Reasons for not Prescribing Prophylaxis: Treatment not Indicated - Low risk for VTE Consult Discharge Plan - Plan Referrals: Sky Alcantar [Primary Care Provider] - 1 week
[2018-02-15] MEDS: Insulin DETEMIR 100 UNIT/ML X5UNITS SQ SCH (20:46)
[2018-02-16] MEDS: ALPRAZolam 0.5 MG TABLET PO PRN (02:26)
[2018-02-16] MEDS: Mag Hydrox/Al Hydrox/Simeth 30 ML UDC PO PRN ×2 (02:26→16:15)
[2018-02-16] MEDS: 0.9 % Sodium Chloride 1,000 ML IVC SCH (06:05)
[2018-02-16] MEDS: Ascorbic Acid 500 MG TABLET PO SCH (06:06)
[2018-02-16] MEDS: Lactobacillus 1 EACH CAP.SPRINK PO SCH (08:44)
[2018-02-16] MEDS: Levofloxacin 500 MG/100 ML 500 MG/100 ML BAG IVPB SCH (08:45)
[2018-02-16] MEDS: Insulin LISPRO 300 UNITS/3 ML VIAL SQ SCH ×2 (08:50→13:44)
[2018-02-16 08:57] VITALS: BP 91/52
[2018-02-16] MEDS: cefTRIAXone 1,000 MG in Water for inj. (sterile) 20 ML 10 ML IVP SCH (10:42)
--- NOTE | 2018-02-16 15:02 | Discharge Summary ---
Orders not resulted at time of discharge: Pending orders 02/16/18 04:00 B-Type Natriuretic Peptide AM 0400 Basic Metabolic Panel AM 0400 Complete Blood Count [HEME] AM 0400 Date of Encounter: 02/16/18 Time of Encounter: 13:45 - Discharge Diagnosis (1) Acute kidney injury Priority: Primary Status: Acute (2) COPD (chronic obstructive pulmonary disease) Priority: Secondary Status: Chronic Qualifiers: COPD type: unspecified COPD Qualified Code(s): J44.9 - Chronic obstructive pulmonary disease, unspecified (3) Anemia Priority: Secondary Status: Chronic Qualifiers: Anemia type: unspecified type Qualified Code(s): D64.9 - Anemia, unspecified (4) Pancreatic cyst Priority: Secondary Status: Acute (5) Cirrhosis of liver Priority: Secondary Status: Chronic Qualifiers: Ascites presence: with ascites Qualified Code(s): K70.31 - Alcoholic cirrhosis of liver with ascites (6) Atrial fibrillation Priority: Secondary Status: Chronic Qualifiers: Atrial fibrillation type: paroxysmal Qualified Code(s): I48.0 - Paroxysmal atrial fibrillation (7) CHF (congestive heart failure) Priority: Secondary Status: Chronic Qualifiers: Heart failure type: unspecified Heart failure chronicity: chronic Qualified Code(s): I50.9 - Heart failure, unspecified (8) Diabetes mellitus Priority: Secondary Status: Chronic Qualifiers: Diabetes mellitus type: type 2 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: with long chain beamer use Diabetes mellitus complication status: with unspecified complications Qualified Code(s): E11.8 - Type 2 diabetes mellitus with unspecified complications; Z79.4 - superintendent container terminal (current) use of insulin (9) Hematoma of muscle Priority: Secondary Status: Acute (10) Pneumonia Priority: Secondary Status: Acute Qualifiers: Pneumonia type: due to unspecified organism Laterality: right Lung location: lower lobe of lung Qualified Code(s): J18.1 - Lobar pneumonia, unspecified organism (11) UTI (urinary tract infection) Priority: Secondary Status: Resolved Qualifiers: Urinary tract infection type: site unspecified Hematuria presence: without hematuria Qualified Code(s): N39.0 - Urinary tract infection, site not specified Hospital course: Mr. Limon is a 72 year old male who was sent to emergency room from [facility] after acute renal failure was documented. He was evaluated in emergency room and found to have leukocytosis with left shift in addition to acute renal failure. He was admitted to [facility] floor for ongoing care needs. Initial orders were written by the emergency room physician. I saw him on February 12 and performed a history and physical. He was given gentle IV hydration. Lasix and trimethoprim/ sulfa were held from his [facility] medicine list. He had no recovery of renal function with creatinine remaining 3.31 on day prior to transfer. He had hyperkalemia on admission and was given oral Kayexalate. He was treated with Rocephin for leukocytosis. WBC normalized to 9.3 on February 13 but toño to 13.0 on February 14. Levaquin was added at renal dosing. Workup for etiology of cirrhosis was ordered with hepatitis profile which returned nonreactive for hepatitis B and C. SAHRA and alpha-1 antitrypsin were ordered with results pending at time of discharge. He had melanotic stools last 24 hours of hospitalization. Attempts at blood blood draws were unsuccessful the morning of February 16. I offered to transfer him to [facility] the evening of February 13 and daily thereafter but after discussion with his ex- he declined transfer. On February 16 I told him he needed either be transferred to he should return [facility] the [facility] as [facility]. After discussion with family he chose to go to [facility]. Contact was made with [facility] and acceptance received. - Time Spent with Patient Total time spent providing and/or coordinating discharge services: - Discharge Medications Home Medications: Atorvastatin [Lipitor] 40 mg PO HS 07/05/15 [History] Clopidogrel [Plavix] 75 mg PO DAILY 07/05/15 [History] Tamsulosin [Flomax] 0.4 mg PO DAILY 07/05/15 [History] Apixaban [Eliquis] 5 mg PO BID 01/07/18 [History] Famotidine [Heartburn Prevention] 20 mg PO BID 01/07/18 [History] Furosemide [Lasix] 80 mg PO DAILY 01/07/18 [History] Cholecalciferol (Vitamin D3) [Vitamin D] 2,000 unit PO 02/11/18 [History] Docusate [Colace] 100 mg PO BID 02/11/18 [History] Insulin Glargine,Hum.rec.anlog [Lantus Solostar] 40 unit SQ HS 02/11/18 [History ] Ipratropium/Albuterol Neb [Duoneb] 3 ml IH Q4HR 02/11/18 [History] Lactobacillus Acidophilus [Acidophilus Lactobacillus] 1 each PO BID 02/11/18 [ History] Metoprolol XL (24 HR) Succ [Toprol XL] 50 mg PO DAILY 02/11/18 [History] Polyethylene Glycol 3350 [MiraLAX Powder Bulk 17.9 Oz] 1 scoop PO DAILY [History] Sulfamethoxazole/Trimeth DS [Bactrim DS] 1 each PO BID 02/11/18 [History] Tramadol HCl [Ultram] 50 mg PO QID PRN 02/11/18 [History] Allergies/Adverse Reactions: 3 Allergy/AdvReac Type Severity Reaction Status Date / Time No Known Allergies Allergy Verified 01/29/18 04:33 Date of admission: 02/12/18 11:35 Primary care physician: Sky Alcantar - Constitutional Vitals: Temp Pulse Resp BP Pulse Ox 98.7 F 112 20 91/52 97 02/16/18 06:58 02/16/18 08:54 02/16/18 06:58 02/16/18 08:54 02/16/18 09:09 - Patient Status Disposition: Transfer Other Condition: Fair - Discharge Instructions - VTE Reasons for not Prescribing Prophylaxis: Treatment not Indicated - Low risk for VTE
[2018-02-16] MEDS: Levalbuterol Neb 1.25 MG/3 ML IH PRN (15:11)
[2018-02-17 13:40] LABS: ANA IgG by ELISA NONE DETECTED (None Detected)
== END 2018-02-16 16:27 | disposition other institution (70) | DRG 682 ==
LOC: INPPIK 15:01 → EMEROOPIK 15:01 → INPPIK 18:39
PROVIDERS: ADMIT Internal Medicine; ATTEND Internal Medicine